=== PATIENT | female | born 1940 | race Caucasian/White ===

== ENCOUNTER → 2020-11-12 | Outpatient (CLI) | payer OTHER, SELFPAY ==
[~2020-11-12] MED LIST: ACID CONTROLLER20 MG PO; ALLERGY RELIEF PO; AMLODIPINE BESY10 MG PO; ASPIRIN CHEWABL81 MG PO; ASPIRIN EC81 MG PO; ASPIRIN81 MG PO; AUGMENTIN 875-1 EACH PO; CATAPRES 0.1MG0.1 MG PO; CEFUROXIME500 MG PO; CELEBREX 200MG200 MG PO; CLARITIN10 M2 PO; CLONIDINE HCL0.1 MG PO; COLACE 100MG C100 MG PO; COLACE100 MG PO; COZAAR100 MG PO; DIOVAN160 MG PO; ECOTRIN81 MG PO; ENDOCET 10-3251 EACH PO; FAMOTIDINE20 MG PO; FISH OIL 1,0001 EAC4 PO; FISH OIL 1,0001 EACH PO; FISH OIL 1,2001 EACH PO; FLAGYL500 MG PO; GABAPENTIN300 MG PO; GABAPENTIN400 MG PO; HYDROCHLOROTH12.5 MG PO; HYDROCODON-ACE1 EAC2 PO; HYDROCODON-ACE1 EAC4 PO; HYDROCODON-ACE1 EAC6 PO; K-DUR TAB 10 M10 MEQ PO; LASIX 40 MG TAB40 MG PO; LIDOCAINE PAIN1 EACH EXT; LORADAMED10 MG PO; METOPROLOL SUCC25 MG PO; METOPROLOL TART25 MG PO; MIRALAX17 GM PO; MOBIC15 MG PO; NITRO-TIME2.5 MG PO; NITROGLYCERIN0.4 MG SL; NITROGLYCERIN2.5 M1 PO; NITROGLYCERIN2.5 MG PO; NORCO 5-325 TA1 EACH PO; NORVASC 5 MG TAB5 MG PO; NORVASC10 MG PO; PANTOPRAZOLE SO40 MG PO; PERCOCET 5/325 T1 EA PO; PLAVIX 75 MG TA75 MG PO; PLAVIX75 MG PO; PREVACID30 MG PO; PROTONIX40 MG PO; TOPROL XL50 MG PO; VIT D3 PO; VITAMIN D2000 UNIT PO; VITAMIN D350 MCG PO; ZOFRAN ODT 4 MG4 MG PO; ZOFRAN ODT 4 MG4 MG SL; ZOFRAN4 MG PO
== END ==
LOC: EMI 10-30 10:15 → KOH-I 10-30 10:15
DX: S34.112A Complete lesion of L2 level of lumbar spinal cord, initial encounter (principal); M51.26 Other intervertebral disc displacement, lumbar region; M48.061 Spinal stenosis, lumbar region without neurogenic claudication; M51.37 Other intervertebral disc degeneration, lumbosacral region; X58.XXXA Exposure to other specified factors, initial encounter
CPT/HCPCS: 72148

== ENCOUNTER 2020-11-27 14:46 | Inpatient (IN) | payer OTHER, SELFPAY ==
[~2020-11-27] VITALS: Ht 157.5 cm; Wt 51.7 kg
[~2020-11-27 14:46] MED LIST changes: -ACID CONTROLLER20 MG PO; -CEFUROXIME500 MG PO; -ECOTRIN81 MG PO; -ENDOCET 10-3251 EACH PO; -FAMOTIDINE20 MG PO; -FISH OIL 1,0001 EACH PO; -HYDROCODON-ACE1 EAC4 PO; -HYDROCODON-ACE1 EAC6 PO; -LIDOCAINE PAIN1 EACH EXT; -LORADAMED10 MG PO; -NITRO-TIME2.5 MG PO; -NORVASC10 MG PO; -VITAMIN D350 MCG PO
[2020-11-27 15:48] LABS: HEMOGLOBIN 10.8 gm/dl (12.3-15.3); RED BLOOD COUNT 3.72 M/UL (4.00-5.10); WHITE BLOOD COUNT 21.4 K/UL (4.5-11.0)
[2020-11-27 16:18] LABS: BUN/CREATININE RATIO 18 (0-10)
[2020-11-27] MEDS ORDERED: HYDROCODON-ACE1 EAC6 PO (19:43)
[2020-11-27] MEDS ORDERED: ACID CONTROLLER20 MG PO (19:43)
[2020-11-27] MEDS ORDERED: NITRO-TIME2.5 MG PO (19:45)
[2020-11-28 06:25] LABS: HEMOGLOBIN 10.6 gm/dl (12.3-15.3); RED BLOOD COUNT 3.62 M/UL (4.00-5.10)
[2020-11-28 06:26] LABS: WHITE BLOOD COUNT 9.9 K/UL (4.5-11.0)
[2020-11-29 05:01] LABS: HEMOGLOBIN 10.1 gm/dl (12.3-15.3); RED BLOOD COUNT 3.46 M/UL (4.00-5.10)
[2020-11-29] MEDS ORDERED: LIDOCAINE PAIN1 EACH EXT (10:35)
[2020-11-29] MEDS ORDERED: FLAGYL500 MG PO (10:37)
[2020-11-29] MEDS ORDERED: CEFUROXIME500 MG PO (10:37)
[2021-03-14] MEDS ORDERED: ECOTRIN81 MG PO (07:04)
[2021-03-14] MEDS ORDERED: HYDROCODON-ACE1 EAC6 PO (07:04)
[2021-03-14] MEDS ORDERED: PLAVIX 75 MG TA75 MG PO (07:05)
[2021-03-14] MEDS ORDERED: CATAPRES 0.1MG0.1 MG PO (07:05)
[2021-03-14] MEDS ORDERED: FISH OIL 1,0001 EACH PO (07:07)
[2021-03-14] MEDS ORDERED: LORADAMED10 MG PO (07:08)
[2021-03-14] MEDS ORDERED: GABAPENTIN400 MG PO (07:08)
[2021-03-14] MEDS ORDERED: TOPROL XL50 MG PO (07:10)
[2021-03-14] MEDS ORDERED: VITAMIN D350 MCG PO (07:11)
[2021-03-14] MEDS ORDERED: ENDOCET 10-3251 EACH PO (08:33)
== END 2020-11-29 12:45 | disposition home or self-care (01) | DRG 682 ==
LOC: ER1 14:46 → CDU 18:16 → MED SURG 4 23:49
PROVIDERS: Emergency Medicine; ADMIT Internal Medicine Infectious Disease
DX: N17.9 Acute kidney failure, unspecified (principal); J69.0 Pneumonitis due to inhalation of food and vomit; E87.1 Hypo-osmolality and hyponatremia; J44.0 Chronic obstructive pulmonary disease with (acute) lower respiratory infection; C34.91 Malignant neoplasm of unspecified part of right bronchus or lung; E44.0 Moderate protein-calorie malnutrition; D72.829 Elevated white blood cell count, unspecified; Z20.822 Contact with and (suspected) exposure to COVID-19; I25.10 Atherosclerotic heart disease of native coronary artery without angina pectoris; Z98.61 Coronary angioplasty status; I12.9 Hypertensive chronic kidney disease with stage 1 through stage 4 chronic kidney disease, or unspecified chronic kidney disease; N18.30 Chronic kidney disease, stage 3 unspecified; E78.5 Hyperlipidemia, unspecified; Z86.73 Personal history of transient ischemic attack (TIA), and cerebral infarction without residual deficits; D64.9 Anemia, unspecified; Z79.82 Long term (current) use of aspirin; Z79.01 Long term (current) use of anticoagulants; Z79.899 Other long term (current) drug therapy; Z85.79 Personal history of other malignant neoplasms of lymphoid, hematopoietic and related tissues; M79.18 Myalgia, other site
CPT/HCPCS: 36415; 71045; 71250; 80053; 81001; 82550; 82553; 83605; 83690; 83874; 84484; 85025; 85379; 87040; 87086; 93005; 94640; 94760; 96365; 96367; 96375; 99285; J0696; J1650; J2270; J2405; J2543; U0002

== ENCOUNTER 2021-01-04 16:23 | Emergency (ER) | payer OTHER, SELFPAY ==
[~2021-01-04 16:23] MED LIST changes: +ACID CONTROLLER20 MG PO; +CEFUROXIME500 MG PO; +HYDROCODON-ACE1 EAC6 PO; +LIDOCAINE PAIN1 EACH EXT; +NITRO-TIME2.5 MG PO
[2021-01-04 19:29] LABS: HEMOGLOBIN 13.6 gm/dl (12.3-15.3); RED BLOOD COUNT 4.53 M/UL (4.00-5.10); WHITE BLOOD COUNT 14.1 K/UL (4.5-11.0)
[2021-03-14] MEDS ORDERED: HYDROCODON-ACE1 EAC6 PO (07:04)
[2021-03-14] MEDS ORDERED: ECOTRIN81 MG PO (07:04)
[2021-03-14] MEDS ORDERED: PLAVIX 75 MG TA75 MG PO (07:05)
[2021-03-14] MEDS ORDERED: CATAPRES 0.1MG0.1 MG PO (07:05)
[2021-03-14] MEDS ORDERED: FISH OIL 1,0001 EACH PO (07:07)
[2021-03-14] MEDS ORDERED: GABAPENTIN400 MG PO (07:08)
[2021-03-14] MEDS ORDERED: LORADAMED10 MG PO (07:08)
[2021-03-14] MEDS ORDERED: TOPROL XL50 MG PO (07:10)
[2021-03-14] MEDS ORDERED: VITAMIN D350 MCG PO (07:11)
[2021-03-14] MEDS ORDERED: ENDOCET 10-3251 EACH PO (08:33)
== END 2021-01-04 21:10 | disposition home or self-care (01) ==
LOC: ER1 16:23
PROVIDERS: Nurse Practitioner
DX: M48.56XA Collapsed vertebra, not elsewhere classified, lumbar region, initial encounter for fracture (principal); I25.10 Atherosclerotic heart disease of native coronary artery without angina pectoris; I11.9 Hypertensive heart disease without heart failure; C90.00 Multiple myeloma not having achieved remission; Z79.82 Long term (current) use of aspirin; Z79.899 Other long term (current) drug therapy
CPT/HCPCS: 36415; 72131; 80053; 81001; 85025; 85652; 86140; 99284

== ENCOUNTER → 2021-01-09 | Outpatient (CLI) | payer OTHER, SELFPAY ==
[~2021-01-09] MED LIST changes: +ECOTRIN81 MG PO; +ENDOCET 10-3251 EACH PO; +FAMOTIDINE20 MG PO; +FISH OIL 1,0001 EACH PO; +HYDROCODON-ACE1 EAC4 PO; +LORADAMED10 MG PO; +NORVASC10 MG PO; +VITAMIN D350 MCG PO
== END ==
LOC: KOH-I 10:20
DX: S32.028A Other fracture of second lumbar vertebra, initial encounter for closed fracture (principal); R32 Unspecified urinary incontinence; R15.9 Full incontinence of feces; M51.36 Other intervertebral disc degeneration, lumbar region; X58.XXXA Exposure to other specified factors, initial encounter
CPT/HCPCS: 72148

== ENCOUNTER 2021-02-15 16:48 | Emergency (ER) | payer OTHER, MEDICAID ==
[~2021-02-15 16:48] MED LIST changes: -ECOTRIN81 MG PO; -ENDOCET 10-3251 EACH PO; -FAMOTIDINE20 MG PO; -FISH OIL 1,0001 EACH PO; -HYDROCODON-ACE1 EAC4 PO; -LORADAMED10 MG PO; -NORVASC10 MG PO; -VITAMIN D350 MCG PO
[2021-02-15 17:21] LABS: HEMOGLOBIN 11.7 gm/dl (12.3-15.3); RED BLOOD COUNT 3.97 M/UL (4.00-5.10); WHITE BLOOD COUNT 10.4 K/UL (4.5-11.0)
[2021-02-15 17:43] LABS: BUN/CREATININE RATIO 18 (0-10)
[2021-02-15] MEDS ORDERED: HYDROCODON-ACE1 EAC4 PO (19:58)
[2021-03-14] MEDS ORDERED: HYDROCODON-ACE1 EAC6 PO (07:04)
[2021-03-14] MEDS ORDERED: ECOTRIN81 MG PO (07:04)
[2021-03-14] MEDS ORDERED: PLAVIX 75 MG TA75 MG PO (07:05)
[2021-03-14] MEDS ORDERED: CATAPRES 0.1MG0.1 MG PO (07:05)
[2021-03-14] MEDS ORDERED: FISH OIL 1,0001 EACH PO (07:07)
[2021-03-14] MEDS ORDERED: LORADAMED10 MG PO (07:08)
[2021-03-14] MEDS ORDERED: GABAPENTIN400 MG PO (07:08)
[2021-03-14] MEDS ORDERED: TOPROL XL50 MG PO (07:10)
[2021-03-14] MEDS ORDERED: VITAMIN D350 MCG PO (07:11)
[2021-03-14] MEDS ORDERED: ENDOCET 10-3251 EACH PO (08:33)
== END 2021-02-15 20:12 | disposition home or self-care (01) ==
LOC: ER1 16:48
PROVIDERS: Emergency Medicine
DX: R07.2 Precordial pain (principal); I11.9 Hypertensive heart disease without heart failure; Z86.73 Personal history of transient ischemic attack (TIA), and cerebral infarction without residual deficits
CPT/HCPCS: 71045; 80053; 82550; 82553; 83874; 83880; 84484; 85025; 85610; 85730; 93005; 99285

== ENCOUNTER → 2021-02-26 | Outpatient (CLI) | payer OTHER, MEDICAID ==
[~2021-02-26] MED LIST changes: +ECOTRIN81 MG PO; +ENDOCET 10-3251 EACH PO; +FAMOTIDINE20 MG PO; +FISH OIL 1,0001 EACH PO; +HYDROCODON-ACE1 EAC4 PO; +LORADAMED10 MG PO; +NORVASC10 MG PO; +VITAMIN D350 MCG PO
== END ==
LOC: ECHO 12:28
DX: C90.00 Multiple myeloma not having achieved remission (principal); C79.51 Secondary malignant neoplasm of bone; R91.1 Solitary pulmonary nodule; I07.1 Rheumatic tricuspid insufficiency; I35.0 Nonrheumatic aortic (valve) stenosis
CPT/HCPCS: ECHO; 93306

== ENCOUNTER → 2021-03-08 | Outpatient (CLI) | payer OTHER, SELFPAY ==
[2021-03-08 12:17] LABS: HEMOGLOBIN 12.5 gm/dl (12.3-15.3); RED BLOOD COUNT 4.19 M/UL (4.00-5.10); WHITE BLOOD COUNT 9.5 K/UL (4.5-11.0)
== END ==
LOC: OPSV2 11:00
PROVIDERS: Orthopaedic Surgery
DX: Z01.818 Encounter for other preprocedural examination (principal); M84.432A Pathological fracture, left ulna, initial encounter for fracture; R94.31 Abnormal electrocardiogram [ECG] [EKG]
CPT/HCPCS: 36415; 80048; 85025; 93005

== ENCOUNTER → 2021-03-14 | Day surgery (SDC) | payer OTHER | END | disposition home or self-care (01) | LOC: OR 06:16 | DX: M84.432A Pathological fracture, left ulna, initial encounter for fracture (principal); I25.10 Atherosclerotic heart disease of native coronary artery without angina pectoris; I11.0 Hypertensive heart disease with heart failure; I50.9 Heart failure, unspecified; E78.5 Hyperlipidemia, unspecified; K21.9 Gastro-esophageal reflux disease without esophagitis; J44.9 Chronic obstructive pulmonary disease, unspecified; N28.9 Disorder of kidney and ureter, unspecified; J18.9 Pneumonia, unspecified organism; K74.60 Unspecified cirrhosis of liver; Z88.2 Allergy status to sulfonamides; Z98.61 Coronary angioplasty status; Z88.5 Allergy status to narcotic agent; Z88.1 Allergy status to other antibiotic agents; Z86.73 Personal history of transient ischemic attack (TIA), and cerebral infarction without residual deficits; Z87.891 Personal history of nicotine dependence | CPT/HCPCS: 73080; 76000; C1713; J0690; J1100; J2405; J2704; J2795; J7120 ==

== ENCOUNTER 2021-03-18 17:27 | Observation (INO) | payer OTHER ==
[~2021-03-18] VITALS: Ht 157.5 cm; Wt 52.6 kg
[~2021-03-18 17:27] MED LIST changes: -FAMOTIDINE20 MG PO; -NORVASC10 MG PO
[2021-03-18 19:22] LABS: HEMOGLOBIN 11.7 gm/dl (12.3-15.3); RED BLOOD COUNT 3.92 M/UL (4.00-5.10); WHITE BLOOD COUNT 9.1 K/UL (4.5-11.0)
[2021-03-19] MEDS ORDERED: HYDROCODON-ACE1 EAC6 PO (13:05)
[2021-03-19] MEDS ORDERED: NORVASC10 MG PO (13:07)
[2021-03-19] MEDS ORDERED: ZOFRAN4 MG PO (13:09)
[2021-03-19] MEDS ORDERED: FAMOTIDINE20 MG PO (13:10)
[2021-03-19] MEDS ORDERED: TOPROL XL50 MG PO (13:18)
--- NOTE | 2021-03-19 19:07 | NUR ---
[facility] EQUIPMENT NOT SET UP TODAY BUT WILL BE SET UP TOMORROW. GRANDDAUGHTER NOTIFIED AND STATES WILL BE FINE BECAUSE SHE ALREADY HAS A HOSPITAL BED, THEY WERE JUST GETTING HER A MORE COMFORTABLE ONE. ALSO PT IS NOT ON OXYGEN NORMALLY. PTS OXYGEN IS 99 PERCENT ON ROOM AIR AT THIS TIME.
== END 2021-03-19 19:14 | disposition home or self-care (01) ==
LOC: ER1 17:27 → M/S 21:38 → CDU 21:38 → M/S 03-19 07:31
PROVIDERS: Emergency Medicine; ADMIT Internal Medicine
DX: R07.89 Other chest pain (principal); R91.8 Other nonspecific abnormal finding of lung field; I25.10 Atherosclerotic heart disease of native coronary artery without angina pectoris; I10 Essential (primary) hypertension; E78.5 Hyperlipidemia, unspecified; J44.9 Chronic obstructive pulmonary disease, unspecified; N63.0 Unspecified lump in unspecified breast; E11.9 Type 2 diabetes mellitus without complications; Z20.822 Contact with and (suspected) exposure to COVID-19; Z86.73 Personal history of transient ischemic attack (TIA), and cerebral infarction without residual deficits; Z87.19 Personal history of other diseases of the digestive system; Z95.5 Presence of coronary angioplasty implant and graft; Z85.79 Personal history of other malignant neoplasms of lymphoid, hematopoietic and related tissues; Z88.1 Allergy status to other antibiotic agents; Z88.2 Allergy status to sulfonamides; Z88.5 Allergy status to narcotic agent; Z88.8 Allergy status to other drugs, medicaments and biological substances; Z87.891 Personal history of nicotine dependence; Z90.2 Acquired absence of lung [part of]; Z79.82 Long term (current) use of aspirin; Z79.899 Other long term (current) drug therapy
CPT/HCPCS: 0240U; 71045; 80053; 82550; 82553; 83874; 83880; 84484; 85025; 85610; 85730; 93005; 96372; 96374; 99285; G0378; J1650; J2405; Q9967